=== PATIENT | female | born 1995 | race African-American/Black ===

== ENCOUNTER 2017-05-07 13:33 | Emergency (ER) | payer OTHER ==
[~2017-05-07] VITALS: Ht 157.5 cm; Wt 56.2 kg
--- NOTE | 2017-05-07 13:43 | NUR ---
PT AMBULATORY TO ER BED 10 C/O HEADACHE AND L BREAST AREA PAIN. STATES NOTED A MASS. GOWNED AND PLACED ON MONITOR. NAD NOTED. AWAITING MD QUARLES.
--- NOTE | 2017-05-07 14:04 | NUR ---
[facility] AT BEDSIDE FOR EVAL.
[2017-05-07] MEDS ORDERED: ONDANSETRON HCL/PF 4 MG/2 ML VIAL ONE (14:33)
[2017-05-07] MEDS: IV NS 0.9% 1,000 ML BAG IV ONE (14:35)
[2017-05-07] MEDS: ONDANSETRON HCL/PF 4 MG/2 ML VIAL IV ONE (14:36)
[2017-05-07] MEDS ORDERED: KETOROLAC TROMETHAMINE 15 MG/ML VIAL ONE (15:16)
[2017-05-07] MEDS: KETOROLAC TROMETHAMINE INJ 30 MG/ML VIAL IV ONE (15:18)
[2017-05-07 16:18] VITALS: BP 121/74
--- NOTE | 2017-05-07 16:18 | NUR ---
Patient discharged to home in stable condition. Written and verbal after care instructions given. Patient verbalizes understanding of instruction.IV removed. Catheter intact and site benign. Pressure and 4x4 applied to site. No bleeding noted.
== END 2017-05-07 16:19 | disposition home or self-care (01) ==
LOC: ER 13:35
DX: N61.0 Mastitis without abscess (principal); G43.909 Migraine, unspecified, not intractable, without status migrainosus; J06.9 Acute upper respiratory infection, unspecified; Z88.1 Allergy status to other antibiotic agents
CPT/HCPCS: 71045-TC; 84703-TC; A4606; J1885; J2405; J7030; Z7610